=== PATIENT | female | born 1960 | race Caucasian/White ===

== ENCOUNTER 2019-01-09 18:49 | Emergency (ER) | payer OTHER ==
[~2019-01-09] VITALS: Ht 170.2 cm; Wt 93.0 kg
[2019-01-09] MEDS ORDERED: SODIUM CHLORIDE FLUSH 10ML SYR IVF ONE (19:30)
[2019-01-09 19:58] LABS: BASOPHILS # (AUTO) 0.04 x10^3/uL (0-0.1); BASOPHILS % (AUTO) 1 % (0-1); EOSINOPHILS # (AUTO) 0.27 x10^3/uL (0-0.4); EOSINOPHILS % (AUTO) 4 % (1-7); LYMPHOCYTES # (AUTO) 2.23 x10^3/uL (1-3.4); LYMPHOCYTES % (AUTO) 32 % (22-44); MD NO; MEAN CORPUSCULAR HEMOGLOBIN 30.6 pg (27.0-34.8); MEAN CORPUSCULAR VOLUME 89.8 fL (80-100); MEAN PLATELET VOLUME 7.9 fL (7.4-10.4); MONOCYTES # (AUTO) 0.39 x10^3/uL (0.2-0.8); MONOCYTES % (AUTO) 6 % (2-9); NEUTROPHILS # (AUTO) 4.11 x10^3/uL (1.8-6.8); NEUTROPHILS % (AUTO) 58 % (42-75); PLATELET COUNT 206 x10^3/uL (130-400); RED CELL DISTRIBUTION WIDTH 13.2 % (9.6-15.2)
[2019-01-09 20:06] LABS: ANION GAP 4 mmol/L (5-15); CALCIUM 8.4 mg/dL (8.5-10.1); CHLORIDE 108 mmol/L (98-107)
[2019-01-09 20:09] LABS: ALANINE AMINOTRANSFERASE 38 U/L (12-78); ALKALINE PHOSPHATASE 110 U/L (45-117); BILIRUBIN,TOTAL 0.4 mg/dL (0.2-1.0); CREATININE 1.06 mg/dL (0.55-1.02); TOTAL PROTEIN 7.7 g/dL (6.4-8.2)
[2019-01-09 20:38] LABS: MICROSCOPIC INDICATED
[2019-01-09 21:02] LABS: CULTURE INDICATED? YES
--- NOTE | 2019-01-09 21:43 | NUR ---
FROM LOBBY TO ROOM
--- NOTE | 2019-01-09 22:15 | NUR ---
PT HERE FOR LUQ PAIN. PT ALSO COMPLAINING OF LUMBAR PAIN X [address]AR[address]
[2019-01-09] MEDS ORDERED: OMNIPAQUE 350 MG/ML, 100ML BOTTLE ONE (22:27)
[2019-01-09] MEDS ORDERED: ACETAMINOPHEN 500 MG TABLET ONE (23:26)
[2019-01-09] MEDS ORDERED: ONDANSETRON ODT 4 MG ONE (23:26)
[2019-01-09] MEDS ORDERED: ACETAMINOPHEN 500 MG TABLET PO ONE (23:30)
[2019-01-09] MEDS ORDERED: ONDANSETRON ODT 4 MG PO ONE (23:30)
[2019-01-09 23:34] VITALS: BP 113/71
--- NOTE | 2019-01-09 23:58 | NUR ---
PT MEDICATED. VSS. PT VERBALIZED UNDERSTANDING OF DISCHARGE INSTRUCTIONS. PIV REMOEVED. PT AMBULATED OUT OF ER WITH A STEADY GAIT.
== END 2019-01-10 00:01 | disposition home or self-care (01) ==
LOC: ED 23:47
DX: K59.00 Constipation, unspecified (principal); Z90.49 Acquired absence of other specified parts of digestive tract
CPT/HCPCS: 36415; 74177; 80053; 81001; 83690; 85025; 87086; 99284; Q0162; Q9967

== ENCOUNTER 2019-12-25 09:41 | Day surgery (SDC) | payer OTHER ==
[~2019-12-25] VITALS: Ht 170.2 cm; Wt 94.1 kg
[~2019-12-25 09:41] MED LIST: ESTR1TAB15 PO; FLUO60SO3 TP; GABA300C10 PO; NAPR1TAB21 PO; NORT50CA52 PO; OXYC10TA6 PO; OXYC40TA27 PO; OXYC60TA8 PO
[2019-12-25] MEDS ORDERED: LUBI8CAP4 PO (10:20)
[2019-12-25] MEDS ORDERED: [UNRECOGNIZED DRUG - REMARK] (10:21)
[2019-12-25 10:25] VITALS: BP 123/74
[2019-12-25] MEDS ORDERED: LACTATED RINGERS 1,000 ML IV SCH (10:33)
[2019-12-25] MEDS ORDERED: SUCCINYLCHOLINE 20 MG/ML, 10ML ONE (12:38)
[2019-12-25] MEDS ORDERED: PROPOFOL 10 MG/ML, 20ML ONE (12:38)
[2019-12-25] MEDS ORDERED: PROPOFOL 50 ML ONE (12:38)
[2019-12-25] MEDS ORDERED: FENTANYL PF 100 MCG/2ML ONE (12:48)
[2019-12-25] MEDS ORDERED: MIDAZOLAM 1 MG/ML, 2ML ONE (12:48)
[2019-12-25] MEDS ORDERED: ONDANSETRON 2MG/ML, 2ML ONE (12:56)
[2019-12-25] MEDS ORDERED: ROCURONIUM 10 MG/ML,10ML ONE (12:56)
[2019-12-25] MEDS ORDERED: DIPHENHYDRAMINE 50 MG/ML, 1ML IVPush PRN (13:30)
[2019-12-25] MEDS ORDERED: FENTANYL PF 100 MCG/2ML IV PRN (13:30)
[2019-12-25] MEDS ORDERED: MEPERIDINE/PF 25MG/ML,1ML IVPush PRN (13:30)
[2019-12-25] MEDS ORDERED: EPHEDRINE 50 MG/ML, 1ML IM PRN (13:30)
[2019-12-25] MEDS ORDERED: HYDROmorphone 2 MG/ML, 1ML IVPush PRN (13:30)
[2019-12-25] MEDS ORDERED: EPHEDRINE 50 MG/ML, 1ML IVPush PRN (13:30)
[2019-12-25] MEDS ORDERED: ONDANSETRON ODT 8 MG PO PRN (13:30)
[2019-12-25] MEDS ORDERED: PROMETHAZINE 25 MG/ML, 1ML IV PRN (13:30)
[2019-12-25] MEDS ORDERED: DIAZEPAM 5 MG/ML, 2ML IVPush PRN (13:30)
[2019-12-25] MEDS ORDERED: ONDANSETRON 2MG/ML, 2ML IV PRN (13:30)
[2019-12-25] MEDS ORDERED: OXYcodone 5 MG/5 ML ORAL.SOL UDC PO PRN (13:30)
[2019-12-25] MEDS ORDERED: OMNIPAQUE 350 MG/ML, 50 ML BOTTLE ONE (14:12)
== END 2019-12-25 15:50 | disposition home or self-care (01) ==
LOC: OUT 09:41
PROVIDERS: ATTEND Internal Medicine
DX: R10.11 Right upper quadrant pain (principal); K83.8 Other specified diseases of biliary tract; K21.9 Gastro-esophageal reflux disease without esophagitis; E66.9 Obesity, unspecified; F41.9 Anxiety disorder, unspecified; M19.90 Unspecified osteoarthritis, unspecified site; Z68.30 Body mass index [BMI] 30.0-30.9, adult; Z79.891 Long term (current) use of opiate analgesic; Z79.899 Other long term (current) drug therapy; Z88.0 Allergy status to penicillin; Z90.49 Acquired absence of other specified parts of digestive tract; Z90.710 Acquired absence of both cervix and uterus; Z98.890 Other specified postprocedural states
CPT/HCPCS: 43259; 43260; 74328; 93005; C1769; J0330; J2250; J2405; J2704; J3010; J7120; Q9967

== ENCOUNTER 2020-09-15 05:41 | Day surgery (SDC) | payer OTHER ==
[~2020-09-15] VITALS: Ht 170.2 cm; Wt 93.8 kg
[~2020-09-15 05:41] MED LIST changes: +LUBI8CAP4 PO; +[UNRECOGNIZED DRUG - REMARK]
[2020-09-15 06:37] VITALS: BP 145/93
[2020-09-15] MEDS ORDERED: LACTATED RINGERS 1,000 ML IV SCH (07:00)
[2020-09-15] MEDS ORDERED: CHLORHEXIDINE 15 ML UDC MM ONE (07:00)
[2020-09-15] MEDS ORDERED: LISI10TA2 PO (07:00)
[2020-09-15] MEDS ORDERED: MIDAZOLAM 1 MG/ML, 2ML ONE (07:23)
[2020-09-15] MEDS ORDERED: FENTANYL PF 100 MCG/2ML ONE ×3 (07:23→09:09)
[2020-09-15 07:50] LABS: ANION GAP 4 mmol/L (5-15); CALCIUM 8.6 mg/dL (8.5-10.1); CHLORIDE 110 mmol/L (98-107); CREATININE 0.88 mg/dL (0.55-1.02)
[2020-09-15] MEDS ORDERED: FUROSEMIDE 20 MG/2 ML ONE (07:58)
[2020-09-15] MEDS ORDERED: ROCURONIUM 10MG/ML,5ML ONE (08:14)
[2020-09-15] MEDS ORDERED: SUGAMMADEX 200 MG/2 ML IVPush ONE (08:14)
[2020-09-15] MEDS ORDERED: ONDANSETRON 2MG/ML, 2ML ONE (08:14)
[2020-09-15] MEDS ORDERED: CEFAZOLIN 1,000 MG ONE (08:14)
[2020-09-15] MEDS ORDERED: PROPOFOL 10 MG/ML, 20ML ONE (08:14)
[2020-09-15] MEDS ORDERED: DEXAMETHASONE 4 MG/ML, 1ML ONE (08:14)
[2020-09-15] MEDS ORDERED: HYDROmorphone 1 MG/ML, 1ML INJ IVPush PRN (08:30)
[2020-09-15] MEDS ORDERED: MEPERIDINE/PF 25MG/0.5ML IVPush PRN (08:30)
[2020-09-15] MEDS ORDERED: DIAZEPAM 5 MG/ML, 2ML IVPush PRN (08:30)
[2020-09-15] MEDS ORDERED: OXYcodone 5 MG/5 ML ORAL.SOL UDC PO PRN (08:30)
[2020-09-15] MEDS ORDERED: DIPHENHYDRAMINE 50 MG/ML, 1ML IVPush PRN (08:30)
[2020-09-15] MEDS ORDERED: ACETAMINOPHEN 325 MG TABLET PO PRN (08:30)
[2020-09-15] MEDS ORDERED: PROMETHAZINE 25 MG/ML, 1ML IVPush PRN (08:30)
[2020-09-15] MEDS ORDERED: ONDANSETRON 2MG/ML, 2ML IVPush PRN (08:30)
[2020-09-15] MEDS ORDERED: KETOROLAC 30 MG/1 ML ONE (08:42)
[2020-09-15] MEDS: FENTANYL PF 100 MCG/2ML IV PRN ×4 (08:45→09:21)
[2020-09-15] MEDS ORDERED: OXYcodone 5 MG/5 ML ORAL.SOL UDC ONE (08:50)
[2020-09-15] MEDS ORDERED: ACETAMINOPHEN 650 MG/20.3 ML UDC ONE (08:50)
[2020-09-15] MEDS ORDERED: DIAZEPAM 5 MG/ML, 2ML ONE (08:59)
[2020-09-15] MEDS ORDERED: KETOROLAC 30 MG/1 ML IVPush ONE (09:00)
== END 2020-09-15 12:05 | disposition home or self-care (01) ==
LOC: OUT 05:41
PROVIDERS: ATTEND Obstetrics & Gynecology Female Pelvic Medicine and Reconstructive Surgery
DX: N81.89 Other female genital prolapse (principal); Z20.828 Contact with and (suspected) exposure to other viral communicable diseases; N39.46 Mixed incontinence; N81.11 Cystocele, midline; N81.6 Rectocele; N81.5 Vaginal enterocele; I10 Essential (primary) hypertension; M19.90 Unspecified osteoarthritis, unspecified site; Z79.899 Other long term (current) drug therapy; Z88.0 Allergy status to penicillin; Z90.49 Acquired absence of other specified parts of digestive tract; Z90.710 Acquired absence of both cervix and uterus; Z90.79 Acquired absence of other genital organ(s); Z90.722 Acquired absence of ovaries, bilateral; Z98.890 Other specified postprocedural states
CPT/HCPCS: 36415; 57265; 57282; 57288; 80048; 87635; 93005; C1771; J1885; J1940; J2250; J3010; J3360; J7120; J0690; J1100; J2405; J2704

== ENCOUNTER → 2020-09-24 | Outpatient (CLI) | payer OTHER ==
[~2020-09-24] MED LIST changes: +LISI10TA2 PO
[2020-09-24 14:52] LABS: BASOPHILS % (AUTO) 1 % (0-1); EOSINOPHILS % (AUTO) 1 % (1-7); LYMPHOCYTES % (AUTO) 13 % (22-44); MEAN CORPUSCULAR HEMOGLOBIN 30.7 pg (27.0-34.8); MEAN CORPUSCULAR HGB CONC 32.8 g/dL (32.4-35.8); MEAN PLATELET VOLUME 7.5 fL (7.4-10.4); MONOCYTES % (AUTO) 2 % (2-9); NEUTROPHILS % (AUTO) 82 % (42-75); PLATELET COUNT 230 x10^3/uL (130-400); RED BLOOD COUNT 4.74 x10^6/uL (3.82-5.3); RED CELL DISTRIBUTION WIDTH 13.2 % (9.6-15.2)
[2020-09-24 14:55] LABS: ALBUMIN 3.7 g/dL (3.4-5.0); ANION GAP 2 mmol/L (5-15); CALCIUM 8.6 mg/dL (8.5-10.1); CHLORIDE 110 mmol/L (98-107)
[2020-09-24 14:59] LABS: ALANINE AMINOTRANSFERASE 27 U/L (12-78); ALKALINE PHOSPHATASE 92 U/L (45-117); BILIRUBIN,TOTAL 0.5 mg/dL (0.2-1.0); CREATININE 0.78 mg/dL (0.55-1.02); MD NO; TOTAL PROTEIN 7.3 g/dL (6.4-8.2)
== END | disposition home or self-care (01) ==
LOC: STAR 12:51
PROVIDERS: ATTEND Orthopaedic Surgery
DX: Z01.810 Encounter for preprocedural cardiovascular examination (principal); Z01.818 Encounter for other preprocedural examination; M25.552 Pain in left hip
CPT/HCPCS: 36415; 80053; 85025; 87081; 87147; 87635; 93005

== ENCOUNTER 2021-03-05 17:21 | Outpatient (CLI) | payer OTHER ==
[~2021-03-05 17:21] MED LIST changes: +CYCL10TA2 PO; +DIAZ5TAB PO; +DICL1TAB49 PO; +HYDR2TAB29 PO; +LISI10TA19 PO; -LISI10TA2 PO; +OMEP20CA20 PO; +OXYC5CAP2 PO; +PARO30TA3 PO; +TRAM50TA2 PO
== END 2021-03-05 23:59 | disposition home or self-care (01) ==
LOC: RAD 17:21
PROVIDERS: ATTEND Physician Assistant
DX: R22.42 Localized swelling, mass and lump, left lower limb (principal)